=== PATIENT | female | born 1970 | race Caucasian/White ===

== ENCOUNTER 2016-09-23 01:38 | Emergency (ER) | payer MEDICAID ==
[~2016-09-23] VITALS: Ht 162.6 cm; Wt 91.1 kg
[2016-09-23 01:40] VITALS: BP 132/79
== END 2016-09-23 03:53 | disposition home or self-care (01) ==
LOC: ED 03:30
DX: G89.11 Acute pain due to trauma (principal); M79.605 Pain in left leg; F17.210 Nicotine dependence, cigarettes, uncomplicated; Y93.89 Activity, other specified; W01.0XXA Fall on same level from slipping, tripping and stumbling without subsequent striking against object, initial encounter; Y99.8 Other external cause status; Y92.009 Unspecified place in unspecified non-institutional (private) residence as the place of occurrence of the external cause
CPT/HCPCS: 99284